=== PATIENT | female | born 1995 | race Caucasian/White ===

== ENCOUNTER 2023-12-14 09:10 | Emergency (ER) | payer MEDICAID ==
[~2023-12-14] VITALS: Ht 154.9 cm; Wt 90.6 kg
[2023-12-14 09:51] VITALS: BP 121/59; PULSE 72; RESP 16; TEMP 97.8; O2SAT 100
[2023-12-14] MEDS: KETOROLAC TROMETH 60MG/2ML VIAL IM ONE (10:03)
[2023-12-14] MEDS ORDERED: METH-1182 PO (10:14)
[2023-12-14] MEDS ORDERED: IBUP-1456 PO (10:14)
== END 2023-12-14 10:20 | disposition home or self-care (01) ==
LOC: ER 09:10
DX: S39.012A Strain of muscle, fascia and tendon of lower back, initial encounter (principal); X50.1XXA Overexertion from prolonged static or awkward postures, initial encounter; Y93.89 Activity, other specified; Y92.89 Other specified places as the place of occurrence of the external cause; Y99.8 Other external cause status
CPT/HCPCS: 96372; 99283; J1885

== ENCOUNTER 2024-10-29 17:05 | Emergency (ER) | payer MEDICAID ==
[~2024-10-29] VITALS: Ht 154.9 cm; Wt 79.8 kg
[~2024-10-29 17:05] MED LIST: IBUP-1456 PO; METH-1182 PO
[2024-10-29] MEDS ORDERED: PRED15SO33 PO (18:06)
[2024-10-29] MEDS ORDERED: AUG875T PO (18:06)
--- NOTE | 2024-10-29 18:07 | ED.PDOC ---
Eye-HPI HPI Comments 29-year-old female complaining of sore throat which started yesterday continued today. States her tonsils feel swollen. Having a hard time talking. No trouble breathing no trouble swallowing. No fever no chills. Nothing makes it better, eating makes it worse. 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 History Family History Family History: Reviewed,noncontributory to illness Social History Smoker: Non-Smoker Alcohol: Denies ETOH Use Drugs: Denies Drug Use Lives In: Home Constitutional: denies: chills, diaphoresis, fatigue, fever, malaise, sweats, weakness, others EENTM: reports: throat pain, throat swelling, voice changes; denies: blurred vision, double vision, ear bleeding, ear discharge, ear drainage, ear pain, ear ringing, eye pain, eye redness, hearing loss, mouth pain, mouth swelling, nasal discharge, nose bleeding, nose congestion, nose pain, photophobia, tearing, others Respiratory: denies: cough, hemoptysis, orthopnea, SOB at rest, shortness of breath, SOB with excertion, stridor, wheezing, others Cardiovascular: denies: chest pain, dizzy spells, diaphoresis, Dyspnea on exertion, edema, irregular heart beat, left arm pain, lightheadedness, palpitations, PND, syncope, others Gastrointestinal: denies: abdomen distended, abdominal pain, blood streaked bowels, constipated, diarrhea, dysphagia, difficulty swallowing, hematemesis, melena, nausea, poor appetite, poor fluid intake, rectal bleeding, rectal pain, vomiting, others Genitourinary: denies: abnormal vagina bleeding, burning, dyspareunia, dysuria, flank pain, frequency, hematuria, incontinence, pain, , vagina discharge, urgency, others Neurological: denies: dizziness, fainting, headache, left sided numbness, left sided weakness, numbness, paresthesia, pre-existing deficit, right sided numbness, right sided weakness, seizure, speech problems, tingling, tremors, weakness, others Musculoskeletal: denies: back pain, gout, joint pain, joint swelling, muscle pain, muscle stiffness, neck pain, others Integumetry: denies: bruises, change in color, change in hair/nails, dryness, laceration, lesions, lumps, rash, wounds, others Allergic/Immunocompromised: denies: Difficulty Healing, Frequent Infections, Hives, Itching, others Physical Exam General Appearance: No Apparent Distress, Normal HEENT: Normal ENT Inspection, Pharynx Normal, Tonsillar Exudate (Tonsils 3+ in size) Neck: Full Range of Motion, Non-Tender, Normal, Normal Inspection Respiratory: Chest Non-Tender, Lungs Clear, No Accessory Muscle Use, No Respiratory Distress, Normal Breath Sounds Cardiovascular: No Edema, No JVD, No Murmur, No Gallop, Normal Peripheral Pulses, Regular Rate/Rhythm Breast Exam: Deferred Gastrointestinal: No Organomegaly, Non Tender, No Pulsatile Mass, Normal Bowel Sounds, Soft Genitalia: Deferred Pelvic: Deferred Rectal: Deferred Extremities: No calf tenderness, Normal capillary refill, Normal inspection, Normal range of motion, Non-tender, No pedal edema Musculoskeletal : Apperance: Normal Neurologic: Alert, 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 Was a procedure done?: No EENT DIFF Eye: N/A Sore Throat: Epiglottitis, Peritonsillar Abscess, Peritonsillar Cellulitis, Streptococcal, Viral Pharyngitis X-Ray, Labs, Meds, VS Comment Imaging: X-rays and CT scans were reviewed and interpreted by this provider, imaging shows no fractures and no pathological disease. Pending radiology review. Laboratory: Labs reviewed and interpreted by this provider. No significant abnormalities noted. Patient has prior medical visits reviewed. Med reconciliation performed Vital signs reviewed Time of 1ST Reevaluation: 18:06 Reevaluation 1ST: Improved Patient Education/Counseling: Diagnosis, Treatment, Need For Follow Up (Patient advised to follow-up in the emergency room in the next 24 to 48 hours if symptoms do not improve. Advised follow-up with PCP in the next 3 to 5 days. Patient verbalized understanding. ) Family Education/Counseling: Diagnosis Departure 1 Departure Time of Disposition: 18:05 Impression: Primary Impression: Tonsillitis Disposition: HOME / SELF CARE / HOMELESS Condition: Fair e-Prescriptions Prednisolone (Prednisolone) 15 Mg/5 Ml Nohemy 30 MG PO DAILY for 5 Days, #50 ML Prov: MOLLY BERMAN 10/29/24 Amoxicillin & Pot Clavulanate (AUGMENTIN TABLET) 875 Mg Tb 875 MG PO BID for 7 Days, #14 TAB Prov: OMLLY BERMAN 10/29/24 Discharged With: Self Critical Care Note Critical Care Time?: No Stability Stability form required: No Heart Score Heart Score: Heart Score Response (Comments) Value History N/A 0 EKG N/A 0 Age N/A 0 Risk Factors N/A 0 Troponin N/A 0 Total 0 MOLLY BERMAN Oct 29, 2024 18:06
[2024-10-29] MEDS: cefTRIAXone SOD 1,000 MG VL IM ONE (18:15)
[2024-10-29 18:17] VITALS: BP 111/71; PULSE 103; RESP 18; TEMP 98.1; O2SAT 99
== END 2024-10-29 18:07 | disposition home or self-care (01) ==
LOC: ER 17:05
DX: J03.90 Acute tonsillitis, unspecified (principal); Z79.1 Long term (current) use of non-steroidal anti-inflammatories (NSAID)
CPT/HCPCS: 96372; 99283; J0696